=== PATIENT | female | born 1965 | race Caucasian/White ===

== ENCOUNTER → 2018-12-15 | Emergency (ER) | payer OTHER ==
[~2018-12-15] VITALS: Ht 177.8 cm; Wt 99.8 kg
[~2018-12-15] MED LIST: ADVAIR 2501 DISK W/1 IH; ALBUTEROL17 G1 IH; CARDURA XL4 MG/BOTTL PO; CATAFLAM50 MG PO; DIOVAN; ENALAPRIL MALEAT5 MG; ENALAPRIL MALEAT5 MG PO; GLUCOPHAGE XR500 MG; KLONOPIN2 MG/TAB PO; LASIX40 MG PO; LOSARTAN POTASS50 MG; STERILE SALINE126 ML; SYNTHROID137 MCG PO; SYNTHROID175 MCG; ZANAFLEX4 M1 PO; [UNRECOGNIZED DRUG - OTHER]
== END | disposition home or self-care (01) ==
LOC: ER 16:06
DX: R04.0 Epistaxis (principal)

== ENCOUNTER 2022-03-03 03:45 | Emergency (ER) | payer OTHER ==
[~2022-03-03] VITALS: Ht 172.7 cm; Wt 120.2 kg
== END 2022-03-03 11:11 | disposition home or self-care (01) ==
LOC: ER 03:45
DX: R04.0 Epistaxis (principal)

== ENCOUNTER 2023-02-19 15:56 | Emergency (ER) | payer OTHER ==
[~2023-02-19] VITALS: Ht 157.5 cm; Wt 103.4 kg
[2023-02-19] MEDS ORDERED: LASIX20 MG (16:11)
[2023-02-19] MEDS ORDERED: CANDESARTAN-HC1 EAC2 (16:11)
[2023-02-19] MEDS ORDERED: DICLOFENAC POTA50 M1 PO (17:58)
== END 2023-02-19 18:13 | disposition home or self-care (01) ==
LOC: ER 15:56
DX: M94.0 Chondrocostal junction syndrome [Tietze] (principal); M06.8A Other specified rheumatoid arthritis, other specified site

== ENCOUNTER 2023-09-27 11:18 | Emergency (ER) | payer OTHER ==
[~2023-09-27] VITALS: Ht 172.7 cm; Wt 98.9 kg
[~2023-09-27 11:18] MED LIST changes: +CANDESARTAN-HC1 EAC2; +DICLOFENAC POTA50 M1 PO; +LASIX20 MG
[2023-09-27] MEDS ORDERED: HUMIRA(CF)40 MG/0.1 SQ (11:50)
[2023-09-27] MEDS ORDERED: METHOTREXA25 MG/1 M5 IJ (11:51)
== END 2023-09-27 16:40 | disposition home or self-care (01) ==
LOC: ER 11:18
DX: S09.8XXA Other specified injuries of head, initial encounter (principal); W18.39XA Other fall on same level, initial encounter; Y93.89 Activity, other specified; Y92.89 Other specified places as the place of occurrence of the external cause

== ENCOUNTER 2023-10-22 07:50 | Outpatient (CLI) | payer OTHER ==
[~2023-10-22 07:50] MED LIST changes: +HUMIRA(CF)40 MG/0.1 SQ; +METHOTREXA25 MG/1 M5 IJ
== END 2023-10-22 07:51 | disposition home or self-care (01) ==
LOC: NUCLEAR 07:50
PROVIDERS: ATTEND Anesthesiology
DX: M54.59 Other low back pain (principal); M51.16 Intervertebral disc disorders with radiculopathy, lumbar region
CPT/HCPCS: 78306; A9503